=== PATIENT | female | born 2000 | race Caucasian/White ===

== ENCOUNTER 2022-07-06 07:51 | Emergency (ER) | payer MEDICAID ==
[~2022-07-06] VITALS: Ht 152.4 cm; Wt 54.4 kg
[2022-07-06] MEDS ORDERED: LIDOCAINE 1%-EPI 1:100,000 20 ML VIAL IJ ONE ×2 (08:15→09:00)
[2022-07-06] MEDS ORDERED: LIDOCAINE 1%-EPI 1:100,000 20 ML VIAL ONE (08:16)
[2022-07-06] MEDS ORDERED: MORPHINE SULFATE 4 MG/1 ML DISP.SYRIN ONE (08:47)
[2022-07-06] MEDS ORDERED: LIDOCAINE HCL 1% 20 ML VIAL ONE (08:56)
[2022-07-06] MEDS ORDERED: CEFTRIAXONE 1 G VIAL ONE (08:56)
[2022-07-06] MEDS ORDERED: CEFTRIAXONE 1 G VIAL IM ONE (09:00)
[2022-07-06] MEDS ORDERED: MORPHINE SULFATE 2 MG/1 ML DISP.SYRIN IM ONE (09:00)
--- NOTE | 2022-07-06 09:47 | NUR ---
0915 pt is resting in bed comfortably waiting for I/D procedure. i/d tray set up at bedside.
[2022-07-06 09:59] LABS: *URINE HCG, QUAL NEGATIVE (NEGATIVE)
[2022-07-06] MEDS ORDERED: SULF1TAB48 PO (10:05)
[2022-07-06] MEDS ORDERED: CEPH500C2 PO (10:05)
--- NOTE | 2022-07-06 10:14 | NUR ---
hcg NEGATIVE, wound cleaned and dressed. Patient discharged to home in stable condition. Written and verbal after care instructions given. Patient verbalizes understanding of instructions. Stressed follow up or return to ER for worsening s/s.
--- NOTE | 2022-07-06 10:15 | NUR ---
pt's boyfriend is driving the patient home.
== END 2022-07-06 10:22 | disposition home or self-care (01) ==
LOC: ER 07:57
DX: L02.411 Cutaneous abscess of right axilla (principal)
CPT/HCPCS: 99284; 10060; 84703; 87070; 87077; 96372 ×2; J0696; J3490 ×2; J2270

== ENCOUNTER 2022-09-25 16:21 | Emergency (ER) | payer MEDICAID ==
[~2022-09-25] VITALS: Ht 160 cm; Wt 54.4 kg
[~2022-09-25 16:21] MED LIST: CEPH500C2 PO; SULF1TAB48 PO
[2022-09-25] MEDS ORDERED: TDAP DIPH,PERTUSS,TET VAC/PF 0.5 ML DISP.SYRIN IM ONE ×2 (17:10→17:15)
--- NOTE | 2022-09-25 17:30 | NUR ---
Gave pt d/c instructions, pt verbalized understanding.
== END 2022-09-25 17:45 | disposition home or self-care (01) ==
LOC: ER 16:21
DX: S41.111A Laceration without foreign body of right upper arm, initial encounter (principal); X58.XXXA Exposure to other specified factors, initial encounter; Y92.89 Other specified places as the place of occurrence of the external cause
CPT/HCPCS: 90715; A4663